=== PATIENT | female | born 2000 | race Caucasian/White ===

== ENCOUNTER 2021-08-30 16:26 | Emergency (ER) | payer MEDICAID ==
[2021-08-30] MEDS ORDERED: Sodium Chloride 0.9% 2.5 ML Syringe FLUSH PRN (16:43)
[2021-08-30] MEDS ORDERED: Sodium Chloride 0.9% 10 ML Syringe FLUSH PRN (16:43)
--- NOTE | 2021-08-30 16:48 | EDM.PDOC ---
<Jakob Carmona - Last Filed: 08/30/21 18:48> ED HPI GENERAL MEDICAL PROBLEM - General Chief Complaint: CREDIT REVIEW MANAGER Problem Stated Complaint: POSSIBLE MISCARRIAGE Time Seen by Provider: 08/30/21 16:31 - History of Present Illness INITIAL COMMENTS - FREE TEXT/NARRATIVE: 21-year-old female G3, P2 at approximately 9 weeks by LMP is presenting with severe lower abdominal cramping and bright red vaginal bleeding. Patient has known she was for the last few weeks. For the last 7 to 10 days she has had some degree of cramping discomfort. She had some brown spotting approximately a week ago. Today she had a significant worsening of the pain that was accompanied with a very thin brisk bright red bleeding. No syncope or near syncope no nausea vomiting. Prior ultrasound was reportedly concerning for ectopic or angular . She has been following with Dr. Conway's office for this but is only actually seen Dr. Weeks. abdomen Pain Score (Numeric/FACES): 7 - Related Data Allergies Allergy/AdvReac Type Severity Reaction Status Date / Time No Known Allergies Allergy Verified 08/30/21 16:43 Home Meds: Home Meds Pnv No.95/Ferrous Fum/Folic AC [ Tablet] 08/30/21 [History] ED ROS GENERAL - Review of Systems Review Of Systems: See Below Free Text/Narrative/Comment: General: No fever. ENT: No sore throat. Neck: No neck stiffness. Respiratory: No shortness of breath. Cardiac: No chest pain. Gastrointestinal: Per HPI Urinary: No dysuria. Musculoskeletal: No myalgias/arthralgias. Neurologic: No headache. ED EXAM, GENERAL - Physical Exam Exam: See Below Free Text/Narrative:: General Appearance: No acute distress, appears comfortable Skin: No rash HEENT: Normocephalic/atraumatic, sclera anicteric, mucous membranes moist Neck: Normal range of motion Chest and Lungs: Bilateral breath sounds, clear to auscultation Cardiovascular: Minimally tachycardic rate, regular rhythm Abdomen: Soft, suprapubic and lower abdominal tenderness Musculoskeletal: No edema or tenderness Neurologic: Awake, alert, no obvious deficits, moving all extremities Psychiatric: Appropriate, cooperative Departure - Departure Disposition: Home, Self-Care 01 Condition: Good Clinical Impression: Threatened miscarriage in early - Discharge Information *PRESCRIPTION DRUG MONITORING PROGRAM REVIEWED*: Not Applicable *COPY OF PRESCRIPTION DRUG MONITORING REPORT IN PATIENT ROBERTO CARLOS: Not Applicable Instructions: Threatened Miscarriage Referrals: Taya Conway MD [Primary Care Provider] - Forms: ED Department Discharge Additional Instructions: You still have some blood within the uterus. You will likely continue to have some bleeding over the weekend. If you soak through more than 2 pads in 1 hour for 2 hours or longer or if you develop severe lightheadedness severe abdominal pain that does not go away chest pain or shortness of breath please return to the ER. Please be sure to keep your OB appointment on Wednesday. The following information is given to patients seen in the emergency department who are being discharged to home. This information is to outline your options for follow-up care. We provide all patients seen in our emergency department with a follow-up referral. The need for follow-up, as well as the timing and circumstances, are variable depending upon the specifics of your emergency department visit. If you don't have a primary care physician on staff, we will provide you with a referral. We always advise you to contact your personal physician following an emergency department visit to inform them of the circumstance of the visit and for follow-up with them and/or the need for any referrals to a consulting specialist. The emergency department will also refer you to a specialist when appropriate. This referral assures that you have the opportunity for follow-up care with a specialist. All of these measure are taken in an effort to provide you with optimal care, which includes your follow-up. Under all circumstances we always encourage you to contact your private physician who remains a resource for coordinating your care. When calling for follow-up care, please make the office aware that this follow-up is from your recent emergency room visit. If for any reason you are refused follow-up, please contact the [facility] Emergency Department at and asked to speak to the emergency department charge nurse. Sepsis Event Note (ED) - Evaluation Sepsis Screening Result: No Definite Risk - Assessment/Plan Assessment:: 21-year-old female presenting with concern for miscarriage, versus threatened miscarriage versus ruptured ectopic . Patient minimally tachycardic but otherwise hemodynamically stable. Abdomen is not peritoneal take at this time. CBC, CMP, quantitative hCG, type and Rh, ultrasound ordered pelvic exam pending and will discuss with OB. Pelvic exam was conducted with a optical mechanic present demonstrates a closed cervical os there is a scant amount of bright red mucousy discharge from the cervical os no clots in the vaginal vault CBC is unremarkable awaiting ultrasound results and will discuss with OB. 1830: Patient discussed with Dr. Mitchell and she would favor subchorionic hemorrhage but we will await the formal radiology interpretation. Given the live intrauterine certainly no procedures would be done today. Patient has an appointment with maternal- medicine the day after tomorrow. Patient will need RhoGam as she is known to be Rh-. That blood work is ongoing. We will touch base with Dr. Mitchell when the formal ultrasound results. 1851: Per Radiology: Gestational sac is eccentrically located. Pt with substantial amount of hemorrhage more centrally within the endometrial cavity. Will update Dr. Mitchell. Updated ultrasound results relayed to Dr. Mitchell. Patient stable for discharge with bleeding precautions will follow up with him in clinic on Wednesday. Patient signed out to Dr. Buitrago at change of shift pending RhoGam administration and disposition. <Lion Buitrago - Last Filed: 08/30/21 20:40> Course - Vital Signs Last Recorded V/S: Last Vital Signs Temp 36.8 C 08/30/21 16:33 Pulse 85 08/30/21 18:25 Resp 16 08/30/21 16:33 BP 113/65 08/30/21 18:25 Pulse Ox 99 08/30/21 18:25 - Orders/Labs/Meds Orders: Active Orders 24 hr Category Date Time Status CHLAMYDIA AND GONORRHEA BY TMA Stat Lab 08/30/21 17:45 Received RH IMMUNE GLOBULIN [BBK] Stat Lab 08/30/21 18:20 Results RHOGAM, [RHIG WORKUP, ] [BBK] Stat Lab 08/30/21 18:20 Resul ts Sodium Chloride 0.9% [Saline Flush] Med 08/30/21 16:43 Active 10 ml FLUSH ASDIRECTED PRN Sodium Chloride 0.9% [Saline Flush] Med 08/30/21 16:43 Active 2.5 ml FLUSH ASDIRECTED PRN Saline Lock Insert [OM.PC] Stat Oth 08/30/21 16:43 Ordered Medication Orders Sodium Chloride (Sodium Chloride 0.9% 10 Ml Syringe) 10 ml FLUSH ASDIRECTED PRN PRN Reason: Keep Vein Open Last Admin: 12/18/21 17:05 Dose: 10 ml Documented by: CASSANDRA Sodium Chloride (Sodium Chloride 0.9% 2.5 Ml Syringe) 2.5 ml FLUSH ASDIRECTED PRN PRN Reason: Keep Vein Open Last Admin: 08/30/21 17:05 Dose: 2.5 ml Documented by: CASSANDRA Labs: Laboratory Tests 08/30/21 08/30/21 08/30/21 Range/Units 17:02 17:02 17:45 WBC 4.72 (4.0-11.0) K/uL RBC 4.40 (4.30-5.90) M/uL Hgb 13.3 (12.0-16.0) g/dL Hct 37.6 (36.0-46.0) % MCV 85.5 (80.0-98.0) fL MCH 30.2 (27.0-32.0) pg MCHC 35.4 (31.0-37.0) g/dL RDW Std Deviation 39.4 (28.0-62.0) fl RDW Coeff of [place] 13 (11.0-15.0) % Plt Count 172 (150-400) K/uL MPV 11.10 (7.40-12.00) fL Neut % (Auto) 58.7 (48.0-80.0) % Lymph % (Auto) 28.6 (16.0-40.0) % [place] % (Auto) 11.4 (0.0-15.0) % Eos % (Auto) 1.1 (0.0-7.0) % Baso % (Auto) 0.2 (0.0-1.5) % Neut # (Auto) 2.8 (1.4-5.7) K/uL Lymph # (Auto) 1.4 (0.6-2.4) K/uL [place] # (Auto) 0.5 (0.0-0.8) K/uL Eos # (Auto) 0.1 (0.0-0.7) K/uL Baso # (Auto) 0.0 (0.0-0.1) K/uL Nucleated RBC % 0.0 /100WBC Nucleated RBCs # 0 K/uL Sodium 141 (136-145) mmol/L Potassium 3.6 (3.5-5.1) mmol/L Chloride 105 (98-107) mmol/L Carbon Dioxide 28.0 (21.0-32.0) mmol/L BUN 8 (7.0-18.0) mg/dL Creatinine 0.6 (0.6-1.0) mg/dL Est Cr Clr Drug Dosing 142.01 mL/min Estimated GFR (MDRD) > 60.0 ml/min Glucose 89 (74-106) mg/dL Calcium 8.9 (8.5-10.1) mg/dL Total Bilirubin 0.3 (0.2-1.0) mg/dL AST 16 (15-37) IU/L ALT 22 (14-63) IU/L Alkaline Phosphatase 51 (46-116) U/L Total Protein 7.3 (6.4-8.2) g/dL Albumin 3.8 (3.4-5.0) g/dL Globulin 3.5 (2.6-4.0) g/dL Albumin/Globulin Ratio 1.1 (0.9-1.6) HCG, Quant 95598.0 mIU/mL Zenia species DNA NEGATIVE (NEGATIVE) Gardnerella DNA Probe NEGATIVE (NEGATIVE) Trichomonas DNA Probe NEGATIVE (NEGATIVE) Blood Type Antibody Screen Rhogam Indicated 08/30/21 Range/Units 18:20 WBC (4.0-11.0) K/uL RBC (4.30-5.90) M/uL Hgb (12.0-16.0) g/dL Hct (36.0-46.0) % MCV (80.0-98.0) fL MCH (27.0-32.0) pg MCHC (31.0-37.0) g/dL RDW Std Deviation (28.0-62.0) fl RDW Coeff of [place] (11.0-15.0) % Plt Count (150-400) K/uL MPV (7.40-12.00) fL Neut % (Auto) (48.0-80.0) % Lymph % (Auto) (16.0-40.0) % [place] % (Auto) (0.0-15.0) % Eos % (Auto) (0.0-7.0) % Baso % (Auto) (0.0-1.5) % Neut # (Auto) (1.4-5.7) K/uL Lymph # (Auto) (0.6-2.4) K/uL [place] # (Auto) (0.0-0.8) K/uL Eos # (Auto) (0.0-0.7) K/uL Baso # (Auto) (0.0-0.1) K/uL Nucleated RBC % /100WBC Nucleated RBCs # K/uL Sodium (136-145) mmol/L Potassium (3.5-5.1) mmol/L Chloride (98-107) mmol/L Carbon Dioxide (21.0-32.0) mmol/L BUN (7.0-18.0) mg/dL Creatinine (0.6-1.0) mg/dL Est Cr Clr Drug Dosing mL/min Estimated GFR (MDRD) ml/min Glucose (74-106) mg/dL Calcium (8.5-10.1) mg/dL Total Bilirubin (0.2-1.0) mg/dL AST (15-37) IU/L ALT (14-63) IU/L Alkaline Phosphatase (46-116) U/L Total Protein (6.4-8.2) g/dL Albumin (3.4-5.0) g/dL Globulin (2.6-4.0) g/dL Albumin/Globulin Ratio (0.9-1.6) HCG, Quant mIU/mL Zenia species DNA (NEGATIVE) Gardnerella DNA Probe (NEGATIVE) Trichomonas DNA Probe (NEGATIVE) Blood Type O NEGATIVE Antibody Screen NEGATIVE Rhogam Indicated YES Meds: Medications Generic Name Dose Route Start Last Admin Trade Name Freq PRN Reason Stop Dose Admin Sodium Chloride 10 ml 08/30/21 16:43 08/30/21 17:05 Sodium Chloride 0.9% 10 Ml Syringe FLUSH 10 ml ASDIRECTED PRN Administration Keep Vein Open Sodium Chloride 2.5 ml 08/30/21 16:43 08/30/21 17:05 Sodium Chloride 0.9% 2.5 Ml Syringe FLUSH 2.5 ml ASDIRECTED PRN Administration Keep Vein Open - Re-Assessments/Exams Free Text/Narrative Re-Assessment/Exam: 08/30/21 19:47 Patient understands her instructions. She is waiting for RhoGam. Departure - Departure Time of Disposition: 20:40 Condition: Good Sepsis Event Note (ED) - Focused Exam Vital Signs: Vital Signs Temp Pulse Resp BP Pulse Ox 08/30/21 18:25 85 113/65 99 08/30/21 16:33 36.8 C 105 H 16 150/99 H 100
[2021-08-30 17:53] LABS: BLOOD UREA NITROGEN,BUN 8 mg/dL (7.0-18.0); CHLORIDE,CL 105 mmol/L (98-107); GLUCOSE RANDOM 89 mg/dL (74-106); POTASSIUM,K 3.6 mmol/L (3.5-5.1); SODIUM,NA 141 mmol/L (136-145)
--- NOTE | 2021-08-30 18:52 | US ---
INDICATION: with pain and vaginal bleeding. TECHNIQUE: Transabdominal and endovaginal obstetric pelvic ultrasound. COMPARISON: None available. FINDINGS: Uterus contains a single gestational sac and fetus with a crown-rump length of 1.9 cm, corresponding with an estimated gestational age of 8 weeks and 4 days. Positive cardiac with a heart rate of 183 beats per minute. Yolk sac visualized measures 4 mm. Notably, the gestational sac appears eccentrically situated within the right lateral aspect of the uterus. Arising from the left aspect of the gestational sac and extending into the endometrial cavity of the lower uterine segment is a region of heterogeneous echogenic tissue measuring 6.1 x 3.6 x 4.0 cm, without internal blood flow identified on color Doppler. Right ovary measures 1.9 x 1.3 x 1.9 cm. Left ovary measures 2.1 x 0.8 x 1.6 cm. No suspicious adnexal lesion. IMPRESSION: 1. Single live intrauterine with estimated gestational age of 8 weeks and 4 days based on crown-rump length. 2. Abnormal appearing right eccentric location of the gestational sac is indeterminate but raises the possibility of a cornual or interstitial ectopic . 3. Heterogeneous echogenic material measuring up to 6 cm arising from the left aspect of the gestational sac and extending into the lower uterine segment is favored to represent hemorrhage. Case discussed with Dr. Elana Carmona 08/30/2021 at 6:50 p.m. Dictated by Irving Engle MD @ 08/30/2021 6:52:02 PM Dictated by: Irving Engle MD @ 08/30/2021 18:52:13 (Electronically Signed)
[2021-09-01 17:03] LABS: C.TRACHOMATIS BY TMA Negative (Negative); N.GONORRHOEAE BY TMA Negative (Negative)
== END 2021-08-30 20:48 | disposition home or self-care (01) ==
LOC: MW.ED 16:26
DX: O20.0 Threatened abortion (principal); Z3A.08 8 weeks gestation of pregnancy
CPT/HCPCS: 36415; 76801; 76801-26; 80053; 84702; 85025; 86850; 86900; 86901; 87480; 87491; 87510; 87591; 87660; 99284-25; J2790

== ENCOUNTER 2021-09-20 09:05 | Day surgery (SDC) | payer MEDICAID ==
[2021-09-19 17:33] LABS: BLOOD UREA NITROGEN,BUN 14 mg/dL (7.0-18.0); CARBON DIOXIDE,CO2 26.9 mmol/L (21.0-32.0); CHLORIDE,CL 103 mmol/L (98-107); GLUCOSE RANDOM 84 mg/dL (74-106); POTASSIUM,K 3.7 mmol/L (3.5-5.1); SODIUM,NA 140 mmol/L (136-145)
[2021-09-20] MEDS ORDERED: fentaNYL 100 MCG/2 ML SDV ONE (09:11)
[2021-09-20] MEDS ORDERED: Propofol 200 MG/20 ML SDV ONE (09:11)
[2021-09-20] MEDS ORDERED: Water For Injection, Sterile 20 ML ONE (09:11)
[2021-09-20] MEDS ORDERED: Esmolol 100 MG/10 ML SDV ONE (09:11)
[2021-09-20] MEDS ORDERED: Dexmedetomidine 200 MCG/2 ML SDV ONE (09:11)
[2021-09-20] MEDS ORDERED: Rocuronium Bromide 50 MG/5 ML Syringe ONE (09:11)
[2021-09-20] MEDS ORDERED: Lidocaine 2% 5 ML SDV ONE (09:11)
[2021-09-20] MEDS ORDERED: Midazolam 1 MG/ML 2 ML SDV ONE (09:11)
[2021-09-20] MEDS ORDERED: Morphine 4 MG/ML VIAL IVPUSH PRN (09:15)
[2021-09-20] MEDS ORDERED: Metoclopramide 10 MG/2 ML SDV IVPUSH PRN (09:15)
[2021-09-20] MEDS ORDERED: Naloxone 0.4 MG/ML SDV IVPUSH PRN (09:15)
[2021-09-20] MEDS ORDERED: fentaNYL 100 MCG/2 ML SDV IVPUSH PRN (09:15)
[2021-09-20] MEDS ORDERED: Albuterol 0.083% 2.5 MG/3 ML Neb Soln NEB PRN (09:15)
[2021-09-20] MEDS ORDERED: Ondansetron 4 MG/2 ML SDV IVPUSH PRN (09:15)
[2021-09-20] MEDS ORDERED: Bupivacaine 0.25% 10 ML SDV ONE (09:15)
[2021-09-20] MEDS ORDERED: HYDROmorphone 1 MG/ML Syringe IVPUSH PRN (09:15)
--- NOTE | 2021-09-20 09:15 | PCM.PREANE ---
Preanesthetic Assessment - Anesthesia/Transfusion/Family Hx Anesthesia History: Prior Anesthesia Without Reaction Transfusion History: No Prior Transfusion(s) - Review of Systems General: No Symptoms Pulmonary: No Symptoms Cardiovascular: No Symptoms Gastrointestinal: No Symptoms Neurological: No Symptoms Other: Reports: None - Physical Assessment NPO Status Date: 09/19/21 NPO Status Time: 21:00 Height: 5 ft 9 in Weight: 63.049 kg ASA Class: 2E Mental Status: Alert & Oriented x3 Dentition: Reports: Normal Dentition Thyro-Mental Finger Breadths: 3 Mouth Opening Finger Breadths: 3 ROM/Head Extension: Full Lungs: Clear to Auscultation, Normal Respiratory Effort Cardiovascular: Regular Rate, Regular Rhythm - Lab Values: Laboratory Last Values WBC 4.60 K/uL (4.0-11.0) 09/19/21 16:46 RBC 4.28 M/uL (4.30-5.90) L 09/19/21 16:46 Hgb 12.8 g/dL (12.0-16.0) 09/19/21 16:46 Hct 37.0 % (36.0-46.0) 09/19/21 16:46 MCV 86.4 fL (80.0-98.0) 09/19/21 16:46 MCH 29.9 pg (27.0-32.0) 09/19/21 16:46 MCHC 34.6 g/dL (31.0-37.0) 09/19/21 16:46 RDW Std Deviation 41.2 fl (28.0-62.0) 09/19/21 16:46 RDW Coeff of [place] 13 % (11.0-15.0) 09/19/21 16:46 Plt Count 181 K/uL (150-400) 09/19/21 16:46 MPV 11.20 fL (7.40-12.00) 09/19/21 16:46 Nucleated RBC % 0.0 /100WBC 09/19/21 16:46 Nucleated RBCs # 0 K/uL 09/19/21 16:46 Sodium 140 mmol/L (136-145) 09/19/21 16:46 Potassium 3.7 mmol/L (3.5-5.1) 09/19/21 16:46 Chloride 103 mmol/L (98-107) 09/19/21 16:46 Carbon Dioxide 26.9 mmol/L (21.0-32.0) 09/19/21 16:46 BUN 14 mg/dL (7.0-18.0) 09/19/21 16:46 Creatinine 0.6 mg/dL (0.6-1.0) 09/19/21 16:46 Est Cr Clr Drug Dosing 145.14 mL/min 09/19/21 16:46 Estimated GFR (MDRD) > 60.0 ml/min 09/19/21 16:46 Glucose 84 mg/dL (74-106) 09/19/21 16:46 Calcium 9.2 mg/dL (8.5-10.1) 09/19/21 16:46 Blood Type O NEGATIVE 09/19/21 16:46 Antibody Screen POSITIVE 09/19/21 16:46 Antibody Identification Anti-D 09/19/21 16:46 - Allergies Allergies/Adverse Reactions: Allergies Allergy/AdvReac Type Severity Reaction Status Date / Time No Known Allergies Allergy Verified 09/18/21 07:32 - Blood Blood Available: Yes - Anesthesia Plan Pre-Op Medication Ordered: None - Acknowledgements Anesthesia Type Planned: General Anesthesia Pt an Appropriate Candidate for the Planned Anesthesia: Yes Alternatives and Risks of Anesthesia Discussed w Pt/Guardian: Yes Pt/Guardian Understands and Agrees with Anesthesia Plan: Yes PreAnesthesia Questionnaire HEENT History: Reports: Other (See Below) Other HEENT History: wears glasses Cardiovascular History: Reports: None Respiratory History: Reports: Other (See Below) Other Respiratory History: asthma as a child Gastrointestinal History: Reports: None Genitourinary History: Reports: UTI, Recurrent Other Genitourinary History: recurrent UTI's with pregnancies SUGAR REFINER History: Reports: Musculoskeletal History: Reports: Other (See Below) Other Musculoskeletal History: intermittent hip and back pain Neurological History: Reports: None Psychiatric History: Reports: Anxiety, PTSD Endocrine/Metabolic History: Reports: None Hematologic History: Reports: None Immunologic History: Reports: None Oncologic (Cancer) History: Reports: None Dermatologic History: Reports: None - Infectious Disease History Infectious Disease History: Reports: None - Past Surgical History Head Surgeries/Procedures: Reports: None HEENT Surgical History: Reports: Oral Surgery Cardiovascular Surgical History: Reports: None Respiratory Surgical History: Reports: None GI Surgical History: Reports: Appendectomy Female Surgical History: Reports: Other (See Below) Other Female Surgeries/Procedures: hysteroscopy with IUD removal Endocrine Surgical History: Reports: None Neurological Surgical History: Reports: None Musculoskeletal Surgical History: Reports: None Oncologic Surgical History: Reports: None Dermatological Surgical History: Reports: None - SUBSTANCE USE Tobacco Use Status *Q: Never Tobacco User - HOME MEDS Home Medications: Home Meds . [No Known Home Meds] 09/18/21 [History]
[2021-09-20] MEDS ORDERED: ceFAZolin 1 GM Vial ONE (09:51)
[2021-09-20] MEDS ORDERED: Lactated Ringers 1,000 ML IV SCH (10:00)
[2021-09-20] MEDS ORDERED: Dexamethasone 4 MG/ML 5 ML MDV ONE (10:07)
[2021-09-20] MEDS ORDERED: Ketorolac 30 MG/ML SDV ONE (10:20)
[2021-09-20] MEDS ORDERED: Ondansetron 4 MG/2 ML SDV ONE (10:20)
[2021-09-20] MEDS ORDERED: Sugammadex Sodium 200 MG/2 ML VIAL ONE (10:20)
[2021-09-20] MEDS ORDERED: ePHEDrine 50 MG/ML SDV ONE (10:25)
--- NOTE | 2021-09-20 10:48 | PCM.POSTAN ---
POST ANESTHESIA ASSESSMENT - MENTAL STATUS Mental Status: Alert, Oriented - VITAL SIGNS Vital Signs: Last Vital Signs Temp 36.1 C 09/20/21 10:36 Pulse 58 L 09/20/21 10:45 Resp 13 09/20/21 10:45 BP 98/46 L 09/20/21 10:45 Pulse Ox 99 09/20/21 10:45 - RESPIRATORY Respiratory Status: Respiratory Rate WNL, Airway Patent, O2 Saturation Stable - CARDIOVASCULAR CV Status: Pulse Rate WNL, Blood Pressure Stable - GASTROINTESTINAL GI Status: No Symptoms - POST OP HYDRATION Hydration Status: Adequate & Stable
[2021-09-20] MEDS ORDERED: Morphine 4 MG/ML VIAL IV PRN (10:51)
--- NOTE | 2021-09-20 10:57 | PCM.OPNOTE ---
- General Post-Op/Procedure Note Date of Surgery/Procedure: 09/20/21 Operative Procedure(s): Diagnostic laparoscopy. Suction dilation & curettage Findings: 11 week size anteverted uterus Normal-appearing uterus, ovaries on laparoscopy Large amount products of conception Pre Op Diagnosis: 21yo with 10 week missed of angular . Rh negative, received Rhogam 09/10 Post-Op Diagnosis: Same Anesthesia Technique: General ET Tube Primary Surgeon: Cassy Mitchell Anesthesia Provider: Rajan Guallpa Facility Maintenance Mechanic: Arminda Early Pathology: Products of conception Fluid Replacement, Intraop: 1,000 Output, Urine Amount: 100 EBL in mLs: 100 Complications: None Condition: Good Free Text/Narrative:: 1g Ancef IV given prior to procedure
--- NOTE | 2021-09-20 11:01 | PCM48HPAN ---
Post Anesthesia Note - EVALUATION WITHIN 48HRS OF ANESTHETIC Vital Signs in Normal Range: Yes Patient Participated in Evaluation: Yes Respiratory Function Stable: Yes Airway Patent: Yes Cardiovascular Function Stable: Yes Hydration Status Stable: Yes Pain Control Satisfactory: Yes Nausea and Vomiting Control Satisfactory: Yes Mental Status Recovered: Yes Vital Signs: Last Vital Signs Temp 36.1 C 09/20/21 10:36 Pulse 92 09/20/21 10:57 Resp 17 09/20/21 10:57 BP 110/55 L 09/20/21 10:57 Pulse Ox 98 09/20/21 10:57
--- NOTE | 2021-09-20 16:03 | OR ---
SURGEON: Cassy Mitchell MD DATE OF PROCEDURE: 09/20/2021 PREOPERATIVE DIAGNOSES: 1. 21-year-old G3, P2-0-1-2, at 10 weeks gestation. 2. Missed of angular . 3. Rh negative, received RhoGAM on September 10. POSTOPERATIVE DIAGNOSES: 1. 21-year-old G3, P2-0-1-2, at 10 weeks gestation. 2. Missed of angular . 3. Rh negative, received RhoGAM on September 10. PROCEDURE: Diagnostic laparoscopy Suction dilation and curettage. PRIMARY SURGEON: Cassy Mitchell MD BRAIDER TENDER: Arminda Early M.D. ANESTHESIA: General endotracheal by Rajan Guallpa CRNA. INTRAVENOUS FLUIDS: 1000 mL LR. ESTIMATED BLOOD LOSS: 100 mL. URINE OUTPUT: 100 mL. ANTIBIOTIC PROPHYLAXIS: 1 g of Ancef IV. INDICATIONS: This is a 21-year-old G3, P2-0-1-2, who had been followed in clinic for a right- sided angular . She had previous bleeding during the and received RhoGAM due to Rh negative status. She had a large subchorionic hemorrhage attack followed by demise of the developing fetus. Due to high risk and patient's distance from the hospital, a plan was set in place to perform a dilation and curettage under laparoscopic guidance to monitor for perforation. The patient began bleeding and was advised to present to the hospital for surgery earlier than planned. DESCRIPTION OF PROCEDURE: The patient was brought to the operating room where general anesthesia was obtained without difficulty. She was placed in a dorsal lithotomy position with legs in Yellofins stirrups. She was prepared and draped in normal sterile fashion. A Gonzalez catheter was inserted. The commercial real estate assistant performed the laparoscopy. 0.25% Marcaine without epinephrine was infiltrated into the umbilical fold. 5 mm skin incision was made in the umbilical fold. The Veress needle was introduced into the peritoneal cavity at a straight angle without difficulty. Intraperitoneal placement was confirmed by drop in intraabdominal pressure with insufflation of CO2 gas. Pneumoperitoneum was established with CO2 gas to a pressure of 15 mmHg. A 5 mm trocar was inserted into the abdomen under direct visualization. An intraabdominal survey revealed normal-appearing uterus and ovaries. The Trendelenburg position was obtained to facilitate moving the bowel and omentum out of the pelvis. The dilation and curettage was watched with the laparoscope to monitor for perforation. After the dilation and curettage, the laparoscope was removed from the abdomen. The incision was repaired with 4-0 Vicryl suture. I performed suction dilation and curettage. A Graves speculum was inserted into the vagina. An Allis clamp was used to grasp the anterior lip of the cervix. The uterus was sounded carefully to 12 cm. The cervix was dilated with Hegar dilators to a size 10. A 10 mm suction curette was advanced into the uterine fundus. Suction was then started. The products of conception were evacuated with curette rotating on the outward movement. A large amount of products of conception was obtained. When no further products of conception were noted in the suction tubing, a gentle sharp curettage was then performed with a medium curette. The suction curette was then reintroduced to clear the uterus. The Allis clamp was removed from the cervix and good hemostasis noted. The patient tolerated the procedure well. All sponge, lap, and needle counts were correct x2. The patient was taken to the recovery room in stable condition. SPECIMEN: Products of conception sent both to Pathology and for genetic analysis. [id number] / MODL /[id number]
== END 2021-09-20 11:40 | disposition home or self-care (01) ==
LOC: MW.SDS 09:05
PROVIDERS: ATTEND Obstetrics & Gynecology
DX: O02.1 Missed abortion (principal); G43.909 Migraine, unspecified, not intractable, without status migrainosus; F32.A Depression, unspecified; J45.909 Unspecified asthma, uncomplicated; Z3A.10 10 weeks gestation of pregnancy; Z79.899 Other long term (current) drug therapy; Z98.890 Other specified postprocedural states; Z90.49 Acquired absence of other specified parts of digestive tract
CPT/HCPCS: 36415; 49320; 59820; 80048; 85027; 86850; 86870; 86900; 86901; J0131; J0330; J0690; J1100; J1885; J2250; J2405; J2704; J3490; J7120; 01965; J3010

== ENCOUNTER 2021-10-04 13:30 | Emergency (ER) | payer MEDICAID ==
[2021-10-04 15:48] LABS: BLOOD UREA NITROGEN,BUN 8 mg/dL (7.0-18.0); CARBON DIOXIDE,CO2 28.4 mmol/L (21.0-32.0); CHLORIDE,CL 104 mmol/L (98-107); GLUCOSE RANDOM 86 mg/dL (74-106); POTASSIUM,K 3.7 mmol/L (3.5-5.1); SODIUM,NA 142 mmol/L (136-145)
== END 2021-10-04 16:00 | disposition home or self-care (01) ==
LOC: MW.ED 13:30
DX: R10.2 Pelvic and perineal pain (principal)
CPT/HCPCS: 36415; 76830; 76830-26; 80053; 81001; 84702; 84703; 85025; 99284-25

== ENCOUNTER 2022-02-21 13:35 | Emergency (ER) | payer MEDICAID ==
[2022-02-21] MEDS ORDERED: Sodium Chloride 0.9% 1,000 ML IV ONE (13:46)
[2022-02-21 15:18] LABS: BLOOD UREA NITROGEN,BUN 9 mg/dL (7.0-18.0); CARBON DIOXIDE,CO2 26.9 mmol/L (21.0-32.0); CHLORIDE,CL 104 mmol/L (98-107); GLUCOSE RANDOM 91 mg/dL (74-106); POTASSIUM,K 3.6 mmol/L (3.5-5.1); SODIUM,NA 139 mmol/L (136-145)
[2022-02-21 15:24] LABS: ESTIMATED GFR > 60.0 ml/min
== END 2022-02-21 16:03 | disposition left against medical advice (07) ==
LOC: MW.ED 13:35
DX: O20.9 Hemorrhage in early pregnancy, unspecified (principal); Z3A.01 Less than 8 weeks gestation of pregnancy; Z90.49 Acquired absence of other specified parts of digestive tract
CPT/HCPCS: 36415; 76817; 76817-26; 80053; 84702; 85025; 99283; 99284-25